=== PATIENT | female | born 1985 | race Caucasian/White ===

== ENCOUNTER 2016-09-24 17:52 | Emergency (ER) | payer OTHER ==
[2016-09-24] MEDS ORDERED: RX INFO: IV CONTRAST WAS GIVEN 1 EACH MISC MISCELLANE PRN (18:52)
[2016-09-24] MEDS ORDERED: SODIUM CHLORIDE 0.9% 1,000 ML IV STA (18:52)
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
[2016-09-24 19:18] LABS: Basophils % (A) 0 %; CH 30.6; CHCM 33.6; Eosinophils # (A) 0.3 k/uL (0-0.7); Eosinophils % (A) 4 %; HCT 38.8 % (34.0-46.0); HDW 2.44; HGB 12.8 gm/dL (11.4-16.0); Luc # (Auto) 0.13; Luc % (Auto) 2; Lymphocytes # (A) 2.3 k/uL (1.0-4.8); Lymphocytes % (A) 29 %; MCH 30.1 pg (25.0-35.0); MCHC 32.9 g/dL (31.0-37.0); MCV 91.4 fL (80.0-100.0); Mean Platelet Volume 7.3; Monocytes # (A) 0.4 k/uL (0-1.0); Monocytes % (A) 5 %; Neutrophils # (A) 4.7 k/uL (1.3-7.7); Neutrophils % (A) 60 %; RBC 4.25 m/uL (3.80-5.40); RDW 14.1 % (11.5-15.5); WBC 7.8 k/uL (3.8-10.6); WBC (Perox) 7.81
[2016-09-24 19:22] LABS: ALT 67 U/L (9-52); AST 47 U/L (14-36); Alkaline Phosphatase 81 U/L (38-126); Anion Gap 8 mmol/L; Blood Urea Nitrogen 10 mg/dL (7-17); Calcium 8.9 mg/dL (8.4-10.2); Carbon Dioxide 25 mmol/L (22-30); Chloride 107 mmol/L (98-107); Glucose 81 mg/dL (74-99); Non-African American GFR(MDRD) >60 (>60 ml/min/1.73 sqM); Sodium 140 mmol/L (137-145); Total Bilirubin 0.2 mg/dL (0.2-1.3); Total Protein 7.2 g/dL (6.3-8.2)
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
[2016-09-24 20:26] VITALS: TEMP 98.5
[2016-09-24] MEDS ORDERED: ACETAMINOPHEN TAB 500 MG TAB PO STA (20:59)
--- NOTE | 2016-09-24 21:14 | XR ---
EXAMINATION TYPE: XR shoulder complete RT DATE OF EXAM: 09/24/2016 COMPARISON: NONE HISTORY: Shoulder pain TECHNIQUE: 3 views FINDINGS: I see no fracture nor dislocation. Glenohumeral joint is intact. There are no pathologic ca lcifications. IMPRESSION: Negative right shoulder exam.
[2016-09-24 21:54] VITALS: BP 111/69; PULSE 83; RESP 16
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
== END 2016-09-24 21:53 | disposition home or self-care (01) ==
LOC: EC 17:52
DX: S06.0X9A Concussion with loss of consciousness of unspecified duration, initial encounter (principal); S40.011A Contusion of right shoulder, initial encounter; R10.11 Right upper quadrant pain; R07.9 Chest pain, unspecified; M54.2 Cervicalgia; V28.4XXA Motorcycle driver injured in noncollision transport accident in traffic accident, initial encounter; Y92.410 Unspecified street and highway as the place of occurrence of the external cause; Y93.89 Activity, other specified
CPT/HCPCS: 99284; 96360; 96361 ×2; 36415; 86900; 86901; 80053; 85025; 86850; 73030; 72125; 70450; 71260; 74177; Q9967